=== PATIENT | female | born 1995 | race Caucasian/White ===

== ENCOUNTER 2023-03-18 13:45 | Outpatient (RCR) | payer OTHER, SELFPAY ==
--- NOTE | 2023-02-13 15:51 | PT.OPE ---
PT [facility] Outpatient Eval PT [facility] Outpatient Eval Start: 02/13/23 15:31 Freq: Status: Active Protocol: Document 02/13/23 15:31 YAEL (Rec: 02/13/23 15:49 YAEL [id number]) E-signed By Godfrey Woods, PT, ATC Physical Therapy Outpatient Evaluation Insurance Information Insurance Name [employer] Medical Diagnosis M54.6 Pain in the thoracic spine G89.29 Cervicalgia Treating Diagnosis Upper back and interscapular pain and stiffness Referring MD Osorio Subjective Subjective Two year history of upper back and interscapular pain/ stiffness. Occurs most days in the later afternoons or evenings, mostly after extended sitting but can occur with activity-lifting weights . Has attended two different periods of chronic care nurse with different providers and experienced minimal improvement. Although prescribed an oral steroid, she chose to not take. Massage therapy intervention has not been attempted. 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 She also is active in Aerial dancing which involves the spinning of hoops and ribbons at and over shoulder height. Symptoms as they occur are within the shoulder blades and upper shoulders with occasional L sided symptoms extending around into anterior left chest. Pain Comments 04/27 Date of Last Physician Visit 02/04/23 Current Work Status Commercial Specialist Occupation verifying specialist Preferred Name Karen Precautions Weight Bearing Status Full Weight Bearing Therapy Limitations/Systems Review Not Limited Objective Range of Motion Cervical and shoulder AROM and PROM WNL's End range cervical flexion and sidebending did produce soreness in the upper shoulders. Strength Cervical and shoulder strength 5/5 for all patterns. Interscapular muscle testing from prone did show mild weakness to horizontal abd and ER Palpation Moderate muscle tone/spasm presence in left > Right interscapular muscles and both upper trapezius muscles. Posture Standing posture reveals decreased thoracic kyphosis/ flat back, mildly rounded shoulders and forward head position and increased L shoulder height. Observation of the spine in forward flexed trunk position shows a group dysfucntion-R vertebral rotation (elevated L transverse process'). Other/Pertinent Objective Mild vertebral mobilization hypomobility present in posterior mid thoracic and left anterior sternocostal joints Assessment Assessment/Impression Karen is a pleasant 27 year old woman experiencing daily interscapular and upper shoulder pain/stiffness symptoms. I believe her symptoms are related to some postural asymmetries, muscle spasms and muscle weakness or deconditioning in the upper thoracic and shoulder regions. A skilled PT program focusing on strength, posture, ergonomics, scapular stabilization and relieving muscle tension is recommended. Plan of Care Rehabilitation Potential Good Physical Therapy Goals 1.Lessen upper back and shoulder symptoms x 75% at a freq of 2x per week or less. 2.Proper ergonomic setup for workstation in her home. 3.Improved posterior shoulder- interscapular-thoracic back strength allowing unlimited dance performance in absence of back symptoms. Coordination/Communication With Referral Source Treatment Plan/Direct Interventions Joint Mobilization,Manual Therapy,Therapeutic Exercises Frequency/Duration 1-2x per week 4-12 weeks Patient Will Be Discharged From Therapy Independent w/HEP, Independently Progressing Evaluation Billing Untimed Code Treatment Minutes 1 PT Eval No Charge Yes Complexity Low Certification Information Physician Comment/Change : Physician NPI Number #
== END 2023-04-01 16:30 | disposition home or self-care (01) ==
PROVIDERS: PCP Internal Medicine; Visit Provider Family Medicine
DX: M54.6 Pain in thoracic spine (principal); M54.2 Cervicalgia; Z51.89 Encounter for other specified aftercare
CPT/HCPCS: 97110; 97140; 97161